=== PATIENT | female | born 1995 | race Caucasian/White ===

== ENCOUNTER 2017-04-02 12:16 | Emergency (ER) | payer OTHER ==
--- NOTE | ~2017-04-02 | CT4 ---
[facility] A Service of [facility] & [facility] RADIOLOGY TEXT RESULTS PATIENT: ANA KENNY LOCATION: SED : [birth year] UNIT #: [id number] AGE: [address]: CAL LERMA SEX: F ORDER DR: [id number] [address] [address] [id number] MR#: [id number] Acc #: [id number] NAME: ANA KENNY : 1995 SEX: F STUDY DATE/TIME: 04/02/2017 13:21 UNIT: SED ROOM: STUDY DESCRIPTION: CT Abd and Pelv Wo Cont Attending Physician: (Kaylah) Cal Lerma Ordering Physician: (Kaylah) Cal Lerma Primary Care Physician: No Primary Care Physician MEDICAL IMAGING REPORT This report is preliminary unless electronic signature is present. EXAM CT abdomen and pelvis without contrast, 04/02/2017, 1321 hours. CLINICAL HISTORY 89-year-old complaining of 1-week history of nausea with sharp pain in the left back today. No known injury. COMPARISON None. TECHNIQUE Helical noncontrasted images were obtained from the lung bases through the pubic symphysis. Sagittal and coronal reconstructions were performed. Total exam DLP 1026 mGy-cm. This CT exam was performed with one or more of the following radiation dose reduction techniques: automatic exposure control, adjustment of mA and/or kV according to patient size, and iterative reconstruction. FINDINGS Images through the lung bases are clear. There are no effusions. Noncontrasted images through the abdomen demonstrate a normal appearance to the liver, spleen, pancreas, gallbladder, bile ducts, adrenal glands and kidneys. There are no renal or ureteral calculi. The abdominal aorta is normal in caliber. There is no adenopathy or ascites. Unopacified stomach and small bowel are normal. There is no evidence of appendicitis. Unopacified colon is nondistended. There is no wall thickening. There is moderate stool only in the distal colon. CT pelvis demonstrates a normal-appearing anteverted uterus. There is a tampon present within the vagina. There is a follicular cyst on the right ovary likely physiologic. There is no pelvic free fluid. [facility]. [facility] A Service of [facility] & [facility] RADIOLOGY TEXT RESULTS PATIENT: ANA KENNY [place] [facility] [place] [birth year] [place]IT #: [id number] AGE: [address]: CAL LERMA SEX: F ORDER DR: Bone window images demonstrate a normal appearance to the lower ribs. The lumbar spine is normally aligned with no vertebral body or disc height loss. There is no spurring or fracture. Sacrum and sacroiliac joints appear normal. IMPRESSION 1. Negative noncontrasted CT of the abdomen and pelvis. 3. There is no rib or lumbar spine lesion. 4. The appendix is normal. 5. Normal appearance to the uterus with physiologic cyst on the ovaries. A tampon is present within the vagina. Dictated by... Jina Hawthorne M.D. THIS IS AN ELECTRONICALLY VERIFIED REPORT Jina Hawthorne M.D. at 04/02/2017 5:39 PM Leonides TD: 04/02/2017 16:41 JOB #: [id number] MEDICAL IMAGING REPORT Page 1 of 1
[~2017-04-02 12:16] MED LIST: BACTRIM DS TABL1 TA2 PO; DICLOFENAC PO; ELIMITE60 GM TOP; MACROBID100 M1 PO; MOTRIN600 MG PO; NAPROSYN500 MG PO; NO MEDICATIONS; ORTHO EVRA1 PATCH.WK TOP; PRENATAL 19 CH1 EACH PO; PYRIDIUM100 MG PO; RISPERIDONE PO; VOLTAREN75 MG PO
[2017-04-02 13:05] LABS: URINE SOURCE CLEAN CATCH
[2017-04-02 13:08] LABS: URINE APPEARANCE SL CLOUDY; URINE BILIRUBIN NEG (NEG); URINE BLOOD 2+ (NEG); URINE COLOR YELLOW; URINE GLUCOSE NEG (NORM); URINE KETONE NEG (NEG); URINE LEUKOCYTE ESTERASE 2+ (NEG); URINE NITRATE POS (NEG); URINE PH 5.5 (5-8); URINE PROTEIN 1+ (NEG); URINE SPECIFIC GRAVITY 1.025 (1.003-1.035); URINE UROBILINOGEN 0.2 MG/DL (NORM)
[2017-04-02 13:09] LABS: MICRO INDICATED? YES
[2017-04-02 13:21] LABS: BASOPHIL# 0.1 X10e3 (0-0.3); BASOPHIL% 0.5 % (0-2.5); EOSINOPHIL# 0.1 X10e3 (0-0.7); EOSINOPHIL% 0.9 % (0.0-7.0); HEMATOCRIT 34.8 % (35.0-45.0); HEMOGLOBIN 11.7 gm/dL (12.0-16.0); LYMPHOCYTE# 1.4 X10e3 (1.0-3.5); LYMPHOCYTE% 13.6 % (17.0-45.0); MEAN CELL VOLUME 86.8 FL (83-96); MEAN CORPUSCULAR HEMOGLOBIN 29.3 PG (28-34); MEAN CORPUSCULAR HGB CONC 33.7 g/dL (30-36); MEAN PLATELET VOLUME 10.6 FL (6.5-11.5); MONOCYTE# 0.8 X10e3 (0-1.0); MONOCYTE% 8.3 % (3.0-12.0); NEUTROPHIL# 7.8 X10e3 (1.5-7.1); NEUTROPHIL% 76.7 % (40-75); PLATELET COUNT 162 X10e3 (140-420); RED BLOOD COUNT 4.01 X10e (3.90-5.30); RED CELL DISTRIBUTION WIDTH 13.4 % (11.0-15.5); WHITE BLOOD COUNT 10.1 X10e3 (4.0-10.5)
[2017-04-02 13:21] LABS: CULTURE INDICATED? YES; URINE BACTERIA 1+ (NEG); URINE WBC 25-50 /[HPF] (0-5)
[2017-04-02 13:22] LABS: URINE SQUAMOUS EPITHELIAL CELL OCCAS /[HPF]
[2017-04-02 13:25] LABS: DIFF IND NO
[2017-04-02 13:41] LABS: ALBUMIN SERUM 4.6 g/dL (3.5-5.0); BILIRUBIN,TOTAL 0.8 mg/dL (0.2-2.0); BUN/CREATININE RATIO 23.33; CALCIUM SERUM 9.2 mg/dL (8.4-10.2); CREATININE SERUM 0.6 mg/dL (0.6-1.4); GLOM FILT RATE Estimated 132.1 mL/min (>60); POTASSIUM 3.7 mmol/L (3.5-5.1); PROTEIN TOTAL SERUM 7.5 g/dL (6.0-8.3)
== END 2017-04-02 15:11 | disposition home or self-care (01) ==
LOC: SED 12:16
PROVIDERS: Physician Assistant
DX: N30.00 Acute cystitis without hematuria (principal); F17.210 Nicotine dependence, cigarettes, uncomplicated
CPT/HCPCS: 36415; 74176; 80053; 81003; 84703; 85025; 87086; 87088; 87186; 96361; 96374; 96375; 99284; J0696; J1885; J2405